=== PATIENT | female | born 1990 | race Two or more races ===

== ENCOUNTER 2018-02-24 17:56 | Observation (INO) | payer OTHER ==
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
[2018-02-24] MEDS ORDERED: LORazepam 2 MG/ML SDV VIAL ONE (18:43)
[2018-02-24 19:16] LABS: BASO % 0.4 % (0-2.0); EOS % 0.7 % (0-4.5); HEMATOCRIT 35.1 % (32.4-45.2); HEMOGLOBIN 11.7 GM/dL (10.7-15.3); LYMPH % 21.9 % (8-40); MCHC 33.4 g/dl (32.0-36.0); MEAN CELL VOLUME 89.8 fl (80-96); MEAN PLT VOLUME 9.1 fl (7.5-11.1); MONO % 4.6 % (3.8-10.2); NEUT % 72.4 % (42.8-82.8); PLATELET COUNT 256 K/MM3 (134-434); RDW 13.9 % (11.6-15.6); WHITE BLOOD COUNT 12.3 K/mm3 (4.0-10.0)
[2018-02-24 19:41] LABS: ALBUMIN 3.7 g/dl (3.4-5.0); ANION GAP 12 (8-16); BILIRUBIN,TOTAL 0.6 mg/dL (0.2-1.0); BLOOD UREA NITROGEN 4 mg/dL (7-18); CALCIUM 9.2 mg/dL (8.5-10.1); CHLORIDE 102 mmol/L (98-107); CO2 22 mmol/L (21-32); CREATININE 0.5 mg/dL (0.55-1.02); GLUCOSE,RANDOM 81 mg/dL (74-106); SGPT/ALT 20 U/L (12-78); SODIUM 136 mmol/L (136-145)
[2018-02-24 19:44] LABS: ALK PHOS 72 U/L (45-117); TOT PROT 7.4 g/dl (6.4-8.2)
[2018-02-24 19:46] LABS: POTASSIUM 3.3 mmol/L (3.5-5.1); SGOT/AST 15 U/L (15-37)
--- NOTE | 2018-02-24 20:06 | PDOC ---
Attending Attestation - HPI HPI: 02/24/18 20:43 The patient is a 27 year old female, with a significant PMH of fainting spells, who presents to the emergency department with five days of lower chest tightness and epigastric abdominal pain. The patient states that earlier today she had approx 3-4 episodes of hematemesis which prompted the ED visit. The patient states she has been taking Motrin every 6 hours for the past 4 days with minimal relief. The patient also endorses constipation, chills and dysuria. The patient denies shortness of breath, palpitations, leg swelling or headache. Denies fever, diarrhea, melenea or hematochezia. Denies frequency, urgency and hematuria. Allergies: NKA - Physicial Exam PE: 02/24/18 21:30 GENERAL: Well developed, well nourished. Awake and alert. No acute distress. HEENT: (+) Dry mucous membranes. Normocephalic, atraumatic. PERRLA, EOMI. No conjunctival pallor. Sclera are non-icteric. Oropharynx is clear. NECK: Supple. Full ROM. No JVD. Carotid pulses 2+ and symmetric, without bruits. No thyromegaly. No lymphadenopathy. CARDIOVASCULAR: Regular rate and rhythm. No murmurs, rubs, or gallops. Distal pulses are 2+ and symmetric. PULMONARY: No evidence of respiratory distress. Lungs clear to auscultation bilaterally. No wheezing, rales or rhonchi. ABDOMINAL: (+) Epigastric and suprapubic tenderness to palpation with guarding. Soft. Non- distended. No organomegaly. Normoactive bowel sounds. MUSCULOSKELETAL Normal range of motion at all joints. No bony deformities or tenderness. EXTREMITIES: No cyanosis. No clubbing. No edema. No calf tenderness. SKIN: Warm and dry. Normal capillary refill. No rashes. No jaundice. NEUROLOGICAL: Alert, awake, appropriate. Cranial nerves 2-12 intact. No deficits to light touch and temperature in face, upper extremities and lower extremities. No motor deficits in the in face, upper extremities and lower extremities. Normoreflexic in the upper and lower extremities. Normal speech. Toes are down- going bilaterally. Gait is normal without ataxia. PSYCHIATRIC: Cooperative. Good eye contact. Appropriate mood and affect. <Siva Gong - Last Filed: 02/25/18 00:52> - Resident Resident Name: SamuelEllis - ED Attending Attestation I have performed the following: I have examined & evaluated the patient, The case was reviewed & discussed with the resident, I agree w/resident's findings & plan, Exceptions are as noted - Medical Decision Making 02/25/18 00:47 Pt will be admitted to hyperemesis gravidarum. <Mukul Mohamud - Last Filed: 02/25/18 02:43> Attestations - Attestations 02/24/18 20:43 Documentation prepared by Siva Gong, acting as nurses medical assistants phlebotomists for Mukul Mohamud DO. <Siva Gong - Last Filed: 02/25/18 00:52>
[2018-02-24 20:08] LABS: URINE APPEARANCE SLCLOUDY; URINE BILIRUBIN NEGATIVE (<2.0 mg/dL); URINE COLOR YELLOW; URINE GLUCOSE (UA) NEGATIVE (NEGATIVE); URINE KETONE 2+ (NEGATIVE); URINE NITRITE NEGATIVE (NEGATIVE); URINE PROTEIN NEGATIVE (NEGATIVE)
[2018-02-24] MEDS ORDERED: SODIUM CHLORIDE 0.9% 1000 ML INFUS.BAG IV ONE (20:12)
[2018-02-24] MEDS ORDERED: POTASSIUM CHLORIDE TABS 20 MEQ TABLET.ER (FP) PO ONE ×2 (20:12→20:20)
[2018-02-24 20:35] LABS: URINE LEUK ESTERASE 3+ (NEGATIVE)
--- NOTE | 2018-02-24 20:43 | PDOC ---
History of Present Illness - General Chief Complaint: Pain Stated Complaint: VOMITING BLOOD Time Seen by Provider: 02/24/18 18:29 History Source: Patient, Family Exam Limitations: No Limitations - History of Present Illness Initial Comments: 02/24/18 20:40 The patient is a 27F with a PMH of "fainting spells" who presents to the ER with complaints of abdominal and chest pain. The patient states that she's had 4 -5 days of constant epigastric pain which is like a "knot pressure" in her abdomen radiating superiorly to her chest. She has also been nauseous for the same amount of time. She states that she has not been able to keep anything down and has been taking 600 ibuprofen every 6 hours for the past 3-4 todays. Today, she began to have bloody vomiting x 3-4 episodes. She admits to constipation, epigastric pain, chills, nausea, and vomiting and dysuria. Past History - Past Medical History Allergies/Adverse Reactions: Allergies Allergy/AdvReac Type Severity Reaction Status Date / Time No Known Allergies Allergy Verified 02/24/18 18:33 Home Medications: Ambulatory Orders NK [No Known Home Medication] 02/24/18 COPD: No Other medical history: Pt denies - Suicide/Smoking/Psychosocial Hx Smoking History: Never smoked Have you smoked in the past 12 months: No Information on smoking cessation initiated: No Hx Alcohol Use: No Drug/Substance Use Hx: No Substance Use Type: None Review of Systems - Review of Systems Able to Perform ROS?: Yes Comments:: 02/24/18 21:21 GENERAL/CONSTITUTIONAL: No fever or chills. No weakness. HEAD, EYES, EARS, NOSE AND THROAT: No change in vision. No ear pain or discharge. No sore throat. CARDIOVASCULAR: Positive for chest pain. No palpitations or lightheadedness. RESPIRATORY: No cough, wheezing, shortness of breath, or hemoptysis. GASTROINTESTINAL: Positive for abdominal pain, nausea, vomiting, and constipation. GENITOURINARY: No dysuria, frequency, hematuria, or change in urination. MUSCULOSKELETAL: No joint or muscle swelling or pain. No neck or back pain. SKIN: No rash or lesions. NEUROLOGIC: No headache, numbness, tingling, weakness, loss of consciousness, or change in strength/sensation. ENDOCRINE: No increased thirst. No abnormal weight change. HEMATOLOGIC/LYMPHATIC: No anemia, easy bleeding, or history of blood clots. ALLERGIC/IMMUNOLOGIC: No hives or skin allergy. Is the patient limited Bel[place]ian proficient: No *Physical Exam - Vital Signs Last Vital Signs Temp Pulse Resp BP Pulse Ox 98.7 F 77 18 147/63 100 02/24/18 18:33 02/24/18 18:33 02/24/18 18:33 02/24/18 18:33 02/24/18 18:33 - Physical Exam Comments: 02/24/18 21:22 GENERAL: Well developed, well nourished. Awake and alert. No acute distress. HEENT: Normocephalic, atraumatic. Hearing grossly normal. Moist mucous membranes. PERRLA, EOMI. No conjunctival pallor. Sclera are non-icteric. NECK: Supple. Full ROM. CARDIOVASCULAR: Regular rate and rhythm. No murmurs, rubs, or gallops. PULMONARY: No evidence of respiratory distress. Lungs clear to auscultation bilaterally. No wheezing, rales or rhonchi. ABDOMINAL: Soft. TTP over epigastrium and suprapubic abdomen with guarding. Non- distended. GENITOURINARY: L CVA tenderness. MUSCULOSKELETAL: Normal range of motion at all joints. No bony deformities or tenderness. EXTREMITIES: No cyanosis. No clubbing. No edema. No calf tenderness or swelling. SKIN: Warm and dry. Normal capillary refill. No rashes. No jaundice. NEUROLOGICAL: Alert, awake, appropriate. Cranial nerves 2-12 grossly intact. Normal speech. PSYCHIATRIC: Cooperative. Good eye contact. Appropriate mood and affect. ED Treatment Course - LABORATORY CBC & Chemistry Diagram: 02/24/18 19:07 02/24/18 19:07 - ADDITIONAL ORDERS Additional order review: Laboratory Results 02/24/18 02/24/18 02/24/18 19:07 19:07 19:05 Sodium 136 Potassium 3.3 L Chloride 102 Carbon Dioxide 22 Anion Gap 12 BUN 4 L Creatinine 0.5 L Creat Clearance w eGFR > 60 Random Glucose 81 Calcium 9.2 Total Bilirubin 0.6 AST 15 ALT 20 Alkaline Phosphatase 72 Creatine Kinase 108 Troponin I < 0.02 Total Protein 7.4 Albumin 3.7 Serum , Qual Positive Urine Color Yellow Urine Appearance Slcloudy Urine pH 6.0 Ur Specific [place] 1.020 Urine Protein Negative Urine Glucose (UA) Negative Urine Ketones 2+ H Urine Blood Negative Urine Nitrite Negative Urine Bilirubin Negative Urine Urobilinogen 2.0 H Ur Leukocyte Esterase 3+ H 02/24/18 19:07 RBC 3.90 MCV 89.8 MCHC 33.4 RDW 13.9 MPV 9.1 Neutrophils % 72.4 Lymphocytes % 21.9 Monocytes % 4.6 Eosinophils % 0.7 Basophils % 0.4 - RADIOLOGY Radiology Studies Ordered: Category Date Time Status ABDOMEN US -LIMITED [US] Stat Ultrasound 02/24/18 19:59 Ordered TRANSVAGINAL US PREG [US] Stat Ultrasound 02/24/18 19:58 Ordered - Medications Given in the ED: ED Medications Discontinued Medications Generic Name Dose Route Start Last Admin Trade Name Deepak PRN Reason Stop Dose Admin Lorazepam 2 mg 02/24/18 18:52 02/24/18 18:50 Ativan Injection - IM 02/24/18 18:53 2 mg ONCE ONE Administration Potassium Chloride 40 meq 02/24/18 20:12 02/24/18 20:27 K-Dur - PO 02/24/18 20:13 40 meq ONCE ONE Administration Sodium Chloride 1,000 ml 02/24/18 20:12 02/24/18 20:27 Normal Saline - IV 02/24/18 20:13 1,000 ml ONCE ONE Administration Medical Decision Making - Medical Decision Making 02/24/18 21:23 The patient is a 27F with a PMH of "fainting spells" who presents to the ER with worsening nausea and vomiting, which has been bloody per the family. The patient had a syncopal episode in the waiting room and was immediately brought to a bed, placed on the monitor with stable vitals noted. She was noted to have shaking activity, although no hx of seizure, and was given 2mg ativan IM. Labs indicate . Pending U/S and quant. Giving zofran for nausea. 02/24/18 23:24 TV U/S shows ~14 week , IUP. RUQ is negative. Labs WNL. Pt states that she has burning b/l UQ pain. Will give maalox and pepcid and reassess. She is desiring "a camera to look there right now!". 02/25/18 00:49 Pt is not tolerating PO. Will admit for hyperemesis gravidarum. Paging [employer] so they are aware. I have endorsed the pt to Dr. Hernandez for admission. *DC/Admit/Observation/Transfer Diagnosis at time of Disposition: Abdominal pain Qualifiers: Abdominal location: epigastric Qualified Code(s): R10.13 - Epigastric pain Vomiting blood Qualifiers: Nausea presence: with nausea Qualified Code(s): K92.0 - Hematemesis - Discharge Dispostion Condition at time of disposition: Guarded Decision to Admit order: Yes - Referrals - Patient Instructions - Post Discharge Activity
[2018-02-24] MEDS ORDERED: ONDANSETRON 4 MG/2 ML VIAL IVPUSH ONE (20:45)
[2018-02-24] MEDS ORDERED: ONDANSETRON 4 MG/2 ML VIAL ONE (20:51)
[2018-02-24 21:26] LABS: EPI CELLS MODERATE /HPF (FEW); URINE HYALINE CAST 5 /lpf; URINE MUCUS RARE
[2018-02-24 22:26] LABS: HCG,QUALITATIVE URINE POSITIVE
[2018-02-24] MEDS ORDERED: FAMOTIDINE 20 MG/50 ML IVPB 20 MG/50 ML MG IVPB ONE ×2 (22:59→23:45)
[2018-02-24] MEDS ORDERED: MAG HYDROX/AL HYDROX/SIMETH 30 ML UNIT-DOSE CUP ONE (22:59)
[2018-02-24] MEDS ORDERED: CEFTRIAXONE 1 GM/50 ML BAG ONE (23:04)
[2018-02-24] MEDS ORDERED: CEFTRIAXONE 1,000 MG in DEXTROSE 5%-WATER - 50 ML IVPB ONE (23:19)
[2018-02-24] MEDS ORDERED: MAG HYDROX/AL HYDROX/SIMETH -MYLANTA- ORAL SUSPENSION PO ONE (23:19)
[2018-02-25] MEDS ORDERED: SODIUM CHLORIDE 1,000 ML IV STA ×2 (00:46)
[2018-02-25] MEDS ORDERED: SODIUM CHLORIDE 1,000 ML IV SCH (04:00)
[2018-02-25 04:11] VITALS: BMI 27.4
[2018-02-25] MEDS ORDERED: PANTOPRAZOLE SODIUM 80 MG in SODIUM CHLORIDE 100 ML IVPB SCH (04:15)
[2018-02-25] MEDS: KCL 10 MEQ IVPB 10 MEQ/100 ML INFUS.BAG IVPB SCH ×2 (05:11→12:07)
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
[2018-02-25 06:55] LABS: BASO % 0.1 % (0-2.0); EOS % 0.2 % (0-4.5); HEMATOCRIT 31.8 % (32.4-45.2); HEMOGLOBIN 11.1 GM/dL (10.7-15.3); LYMPH % 21.5 % (8-40); MCH 31.3 pg (25.7-33.7); MCHC 34.8 g/dl (32.0-36.0); MEAN PLT VOLUME 8.8 fl (7.5-11.1); MONO % 5.7 % (3.8-10.2); NEUT % 72.5 % (42.8-82.8); PLATELET COUNT 185 K/MM3 (134-434); RBC 3.53 M/mm3 (3.60-5.2); RDW 13.8 % (11.6-15.6); WHITE BLOOD COUNT 10.3 K/mm3 (4.0-10.0)
[2018-02-25 07:52] LABS: ALBUMIN 3.1 g/dl (3.4-5.0); ALK PHOS 59 U/L (45-117); BILIRUBIN,TOTAL 0.5 mg/dL (0.2-1.0); BLOOD UREA NITROGEN 3 mg/dL (7-18); CALCIUM 7.7 mg/dL (8.5-10.1); CHLORIDE 107 mmol/L (98-107); CREATININE 0.4 mg/dL (0.55-1.02); GLUCOSE,RANDOM 63 mg/dL (74-106); MAGNESIUM 1.7 mg/dL (1.8-2.4); PHOSPHOROUS 2.6 mg/dL (2.5-4.9); POTASSIUM 3.4 mmol/L (3.5-5.1); SGOT/AST 11 U/L (15-37); SGPT/ALT 16 U/L (12-78); SODIUM 138 mmol/L (136-145)
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
[2018-02-25 08:33] LABS: ANION GAP 11 (8-16); CO2 20 mmol/L (21-32)
[2018-02-25] MEDS ORDERED: MAGNESIUM SULF 50% (8.12 MEQ/2 ML-1 GM VIAL) IVPB ONE (11:31)
[2018-02-25] MEDS ORDERED: PANTOPRAZOLE SODIUM 40 MG VIAL IVPUSH SCH (11:45)
[2018-02-25] MEDS ORDERED: MAGNESIUM SULFATE IN WATER 2 GM/50 ML IVPB IVPB ONE (12:00)
--- NOTE | 2018-02-25 12:06 | EKG ---
Test Reason : Blood Pressure : / mmHG Vent. Rate : 067 BPM Atrial Rate : 067 BPM P-R Int : 150 ms QRS Dur : 090 ms QT Int : 406 ms P-R-T Axes : 050 075 033 degrees QTc Int : 429 ms NORMAL SINUS RHYTHM NORMAL ECG NO PREVIOUS ECGS AVAILABLE Confirmed by ERMA SHORT MD ([id number]) on 02/25/2018 12:05:56 PM Referred By: Confirmed By:ERMA SHORT MD
[2018-02-25] MEDS: ONDANSETRON 4 MG/2 ML VIAL IVPUSH PRN ×2 (12:07→17:19)
[2018-02-25] MEDS: DEXTROSE 5%-NORMAL SALINE 1,000 ML IV SCH ×2 (12:07→20:54)
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
[2018-02-25] MEDS ORDERED: CALCIUM GLUCONATE 10% - 1,000 MG/10 ML VIAL IVPB ONE (14:00)
--- NOTE | 2018-02-25 15:02 | ECHO ---
Name: DIMITRIOS CHRISTIAN Exam:Adult Echocardiogram Study Date: 02/25/2018 01:42 PM Age: 27 yrs Reason For Study: Chest pain Height: 65 in Weight: 165 lb BSA: 1.8 m2 MMode/2D Measurements & Calculations IVSd: 0.66 cm Ao root diam: 2.7 cm LVIDd: 5.2 cm LA dimension: 3.5 cm LVIDs: 3.4 cm LVPWd: 0.56 cm EDV(Teich): 128.1 ml RV S Alejandro: 20.1 cm/sec ESV(Teich): 48.6 ml Doppler Measurements & Calculations MV E max alejandro: 81.9 cm/sec MR max alejandro: 461.5 cm/sec MV A max alejandro: 60.2 cm/sec MR max P.2 mmHg MV E/A: 1.4 MV dec time: 0.31 sec TR max alejandro: 227.0 cm/sec Med Peak E' Alejandro: 12.0 cm/sec TR max P.6 mmHg Med E/e': 6.9 Lat Peak E' Alejandro: 19.1 cm/sec Lat E/e': 4.3 Left Ventricle Left ventricular systolic function is normal. Right Ventricle The right ventricle is grossly normal size. The right ventricular systolic function is grossly normal . Atria Normal left and right atrial size and function. Mitral Valve The mitral valve is normal in structure and function. There is no mitral valve stenosis. There is mil d mitral regurgitation. Tricuspid Valve The tricuspid valve is not well visualized, but is grossly normal. There is mild tricuspid regurgitat ion. Aortic Valve The aortic valve opens well. No hemodynamically significant valvular aortic stenosis. No aortic regur gitation is present. Pulmonic Valve The pulmonic valve is not well seen, but is grossly normal. There is no pulmonic valvular stenosis. T here is no pulmonic valvular regurgitation. Great Vessels The aortic root is normal size. Pericardium/Pleura There is no pericardial effusion. Interpretation Summary Left ventricular systolic function is normal. There is mild mitral regurgitation. There is mild tricuspid regurgitation. There is no pericardial effusion. MD Rosalino Serna 02/25/2018 03:02 PM
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
[2018-02-25] MEDS: POTASSIUM CHLORIDE 10 MEQ in SODIUM CHLORIDE 100 ML IVPB SCH ×2 (15:58→17:13)
[2018-02-25] MEDS ORDERED: PYRIDOXINE HCL (B-6) 100 MG TABLET PO ONE (17:16)
[2018-02-25] MEDS: MAG HYDROX/AL HYDROX/SIMETH 30 ML UNIT-DOSE CUP PO PRN (17:17)
[2018-02-25] MEDS: SUCRALFATE 1 GM/10 ML UNIT DOSE CUPS PO SCH ×2 (17:17→21:18)
--- NOTE | 2018-02-25 18:12 | PN ---
Physical Exam: SUBJECTIVE: Patient seen and examined this morning at bedside in the presence of her aunt. Continues to vomit blood. Continues to having retching throughout examination. Denies fevers, chills, chest pain, SOB. OBJECTIVE: Vital Signs Period Temp Pulse Resp BP Sys/Hopper Pulse Ox Last 24 Hr 98.1 F-98.7 F 67-77 18-20 107-147/63-85 99-100 GENERAL: The patient is awake, alert, and fully oriented, in no acute distress. THROAT: Oropharynx clear without erythema or exudates, moist mucous membranes. LUNGS: Breath sounds equal, clear to auscultation bilaterally, no wheezes, no crackles HEART: Regular rate and rhythm, S1, S2 without murmur, rub or gallop. ABDOMEN: Soft, nondistended, normoactive bowel sounds, no guarding, Tender to palpation in the LUQ and Midepigastrum that radiates up the sternum EXTREMITIES: no edema. PSYCH: Anxious Laboratory Results - last 24 hr 02/24/18 02/24/18 02/24/18 18:49 19:05 19:07 WBC 12.3 H RBC 3.90 Hgb 11.7 Hct 35.1 MCV 89.8 MCH 30.0 MCHC 33.4 RDW 13.9 Plt Count 256 MPV 9.1 Absolute Neuts (auto) 8.9 Neutrophils % 72.4 Lymphocytes % 21.9 Monocytes % 4.6 Eosinophils % 0.7 Basophils % 0.4 Nucleated RBC % 0 Sodium Potassium Chloride Carbon Dioxide Anion Gap BUN Creatinine Creat Clearance w eGFR POC Glucometer [id number] Random Glucose Lactic Acid Calcium Phosphorus Magnesium Total Bilirubin AST ALT Alkaline Phosphatase Creatine Kinase Troponin I Total Protein Albumin Lipase Beta HCG, Quant Serum , Qual Positive Urine Color Urine Appearance Urine pH Ur Specific [place] Urine Protein Urine Glucose (UA) Urine Ketones Urine Blood Urine Nitrite Urine Bilirubin Urine Urobilinogen Ur Leukocyte Esterase Urine WBC (Auto) Urine RBC (Auto) Ur Epithelial Cells Hyaline Casts Urine Mucus Urine HCG, Qual Blood Type Antibody Screen 02/24/18 02/24/18 02/24/18 19:07 19:07 19:07 WBC RBC Hgb Hct MCV MCH MCHC RDW Plt Count MPV Absolute Neuts (auto) Neutrophils % Lymphocytes % Monocytes % Eosinophils % Basophils % Nucleated RBC % Sodium 136 Potassium 3.3 L Chloride 102 Carbon Dioxide 22 Anion Gap 12 BUN 4 L Creatinine 0.5 L Creat Clearance w eGFR > 60 POC Glucometer Random Glucose 81 Lactic Acid Calcium 9.2 Phosphorus Magnesium Total Bilirubin 0.6 AST 15 ALT 20 Alkaline Phosphatase 72 Creatine Kinase 108 Troponin I < 0.02 Total Protein 7.4 Albumin 3.7 Lipase Beta HCG, Quant Serum , Qual Urine Color Yellow Urine Appearance Slcloudy Urine pH 6.0 Ur Specific [place] 1.020 Urine Protein Negative Urine Glucose (UA) Negative Urine Ketones 2+ H Urine Blood Negative Urine Nitrite Negative Urine Bilirubin Negative Urine Urobilinogen 2.0 H Ur Leukocyte Esterase 3+ H Urine WBC (Auto) 7 Urine RBC (Auto) 2 Ur Epithelial Cells Moderate Hyaline Casts 5 Urine Mucus Rare Urine HCG, Qual Positive Blood Type O POSITIVE Antibody Screen Negative 02/24/18 02/24/18 02/25/18 19:07 20:14 06:00 WBC 10.3 H RBC 3.53 L Hgb 11.1 Hct 31.8 L MCV 90.0 MCH 31.3 MCHC 34.8 RDW 13.8 Plt Count 185 D MPV 8.8 Absolute Neuts (auto) 7.5 Neutrophils % 72.5 Lymphocytes % 21.5 Monocytes % 5.7 Eosinophils % 0.2 Basophils % 0.1 Nucleated RBC % 0 Sodium Potassium Chloride Carbon Dioxide Anion Gap BUN Creatinine Creat Clearance w eGFR POC Glucometer Random Glucose Lactic Acid 0.9 Calcium Phosphorus Magnesium Total Bilirubin AST ALT Alkaline Phosphatase Creatine Kinase Troponin I Total Protein Albumin Lipase 80 Beta HCG, Quant 95933.3 Serum , Qual Urine Color Urine Appearance Urine pH Ur Specific [place] Urine Protein Urine Glucose (UA) Urine Ketones Urine Blood Urine Nitrite Urine Bilirubin Urine Urobilinogen Ur Leukocyte Esterase Urine WBC (Auto) Urine RBC (Auto) Ur Epithelial Cells Hyaline Casts Urine Mucus Urine HCG, Qual Blood Type Antibody Screen 02/25/18 02/25/18 06:00 08:50 WBC RBC Hgb Hct MCV MCH MCHC RDW Plt Count MPV Absolute Neuts (auto) Neutrophils % Lymphocytes % Monocytes % Eosinophils % Basophils % Nucleated RBC % Sodium 138 Potassium 3.4 L Chloride 107 Carbon Dioxide 20 L Anion Gap 11 BUN 3 L Creatinine 0.4 L Creat Clearance w eGFR > 60 POC Glucometer Random Glucose 63 L Lactic Acid Calcium 7.7 L Phosphorus 2.6 Magnesium 1.7 L Total Bilirubin 0.5 AST 11 L ALT 16 Alkaline Phosphatase 59 D Creatine Kinase Troponin I Total Protein 6.0 L Albumin 3.1 L Lipase Beta HCG, Quant Serum , Qual Urine Color Urine Appearance Urine pH Ur Specific [place] Urine Protein Urine Glucose (UA) Urine Ketones Urine Blood Urine Nitrite Urine Bilirubin Urine Urobilinogen Ur Leukocyte Esterase Urine WBC (Auto) Urine RBC (Auto) Ur Epithelial Cells Hyaline Casts Urine Mucus Urine HCG, Qual Blood Type O POSITIVE Antibody Screen Active Medications Al Hydroxide/Mg Hydroxide (Mylanta Oral Suspension -) 30 ml PO Q6H PRN PRN Reason: DYSPEPSIA Last Admin: 02/25/18 17:17 Dose: 30 ml Famotidine/Sodium Chloride (Pepcid 20 Mg Premixed Ivpb -) 20 mg in 50 mls @ 100 mls/hr IVPB BID LEAH Last Admin: 02/25/18 21:18 Dose: 100 mls/hr Dextrose/Sodium Chloride (D5-Ns -) 1,000 mls @ 125 mls/hr IV ASDIR LEAH Ondansetron HCl (Zofran Injection) 4 mg IVPUSH Q6H PRN PRN Reason: NAUSEA Last Admin: 02/26/18 07:47 Dose: 4 mg Pyridoxine HCl (Vitamin B6 -) 50 mg PO TID LEAH Last Admin: 02/25/18 22:41 Dose: Not Given Sucralfate (Carafate Oral Suspension -) 1 gm PO QID LE[facility] Last Admin: 02/25/18 21:18 Dose: Not Given ASSESSMENT/PLAN: 27 y/o F who presents to ED with complaint of hematemesis for several weeks. Labs remarkable for leukocytosis and mild hypokalemia. TVUS in ED remarkable for 14th week . 1. Vomiting - Pt reports several weeks of hematemesis - OB (Dr. Mahmood) consulted, appreciate rec's - TVUS noted - Hgb WNL - Pending Abdominal Ultrasound - GI consulted, appreciate rec's, started H2 blockers - Zofran - Protonix BID - Mylanta - Will obtain records from other 2 ERs patient visited - ECHO 2. Multiple electrolyte abnormalities; HypoKalemia, Hypocalcemia, Hypophosphatemia, Hypomagnesemia - Potassium 3.4, Calcium 7.7, Phosphorus 2.6, Magnesium 1.7 - Kdur in ED, KCl - Continue to monitor, replete as needed 3. FEN - PO Intake - Replete Potassium, calcium, mag, phos - Soft diet 4. PPx - SCDs Visit type - Emergency Visit Emergency Visit: Yes ED Registration Date: 02/25/18 Care time: The patient presented to the Emergency Department on the above date and was hospitalized for further evaluation of their emergent condition. - New Patient This patient is new to me today: Yes Date on this admission: 02/26/18 - Critical Care Critical Care patient: No
[2018-02-25] MEDS ORDERED: ACETAMINOPHEN 325 MG TABLET (FP) PO ONE (20:22)
[2018-02-25] MEDS ORDERED: diphenhydrAMINE HCL 25 MG CAPSULE (FP) PO ONE (20:22)
[2018-02-25] MEDS ORDERED: PANTOPRAZOLE SODIUM 40 MG VIAL IVPUSH ONE ×2 (21:13→22:14)
[2018-02-25] MEDS: PYRIDOXINE HCL (B-6) 50 MG TABLET (FP) PO SCH ×2 (21:16→22:41)
[2018-02-25] MEDS: FAMOTIDINE 20 MG/50 ML IVPB 20 MG/50 ML MG IVPB SCH (21:18)
--- NOTE | 2018-02-25 22:12 | RAPID ---
Physical Examination Vital Signs: Rapid response called approximately 9:55pm. Patient was observed flailing with abnormal movements. Was unresponsive when physicians arrived. Immediately alerted to sternal rub. In severe distress. Complaining of chest pain, inability to breathe, and "something in my chest." Complains of seeing "lights everywhere." Given non-rebreather but did not tolerate. Became unresponsive repeatedly during evaluation but immediately re-alerted to voice. Coughed up moderate white sputum with scant blood. Bedside seated right arm BP 170/80. HR wnl. Stat EKG showed NSR. Troponins, CBC, CMP, CPK, ABG, lactate ordered stat. Protonix 40mg IV and Ativan 0.5 ordered stat. Repeat right arm BP 140/84. Left arm BP 132/80. Abd US ordered.Will follow Vital Signs Temperature 98.6 F 02/25/18 21:02 Pulse Rate 66 02/25/18 21:02 Respiratory Rate 20 02/25/18 21:02 Blood Pressure 135/75 02/25/18 21:02 O2 Sat by Pulse Oximetry (%) 100 02/25/18 03:30 Cardiovascular: Yes: WNL, Regular Rate and Rhythm Respiratory: Yes: WNL, Regular, CTA Bilaterally Gastrointestinal: Yes: WNL, Normal Bowel Sounds ...Motor Strength: WNL Labs: CBC, BMP 02/25/18 06:00 02/25/18 06:00
[2018-02-25] MEDS ORDERED: LORazepam 2 MG/ML SDV VIAL IVPUSH ONE ×2 (22:16→22:17)
[2018-02-25 22:55] LABS: BASO % 0.1 % (0-2.0); EOS % 0.2 % (0-4.5); HEMATOCRIT 33.5 % (32.4-45.2); HEMOGLOBIN 11.4 GM/dL (10.7-15.3); LYMPH % 19.1 % (8-40); MCH 30.6 pg (25.7-33.7); MEAN PLT VOLUME 8.4 fl (7.5-11.1); MONO % 4.6 % (3.8-10.2); PLATELET COUNT 216 K/MM3 (134-434); RBC 3.72 M/mm3 (3.60-5.2); WHITE BLOOD COUNT 10.8 K/mm3 (4.0-10.0)
[2018-02-25 23:19] LABS: ALBUMIN 3.2 g/dl (3.4-5.0); ANION GAP 9 (8-16); BLOOD UREA NITROGEN 4 mg/dL (7-18); CALCIUM 8.1 mg/dL (8.5-10.1); CHLORIDE 103 mmol/L (98-107); CO2 22 mmol/L (21-32); CREATININE 0.6 mg/dL (0.55-1.02); GLUCOSE,RANDOM 81 mg/dL (74-106); POTASSIUM 3.2 mmol/L (3.5-5.1); SGOT/AST 12 U/L (15-37); SGPT/ALT 18 U/L (12-78); SODIUM 134 mmol/L (136-145)
[2018-02-25 23:22] LABS: ALK PHOS 65 U/L (45-117); BILIRUBIN,TOTAL 0.5 mg/dL (0.2-1.0); TOT PROT 6.4 g/dl (6.4-8.2)
[2018-02-26 00:15] LABS: ARTERIAL BLD GAS O2 SATURATION 97.9 % (90-98.9); ARTERIAL BLOOD GAS BASE EXCESS -5.1 meq/l (-2-2); ARTERIAL BLOOD GAS PCO2 30.8 mmHg (35-45); ARTERIAL BLOOD GAS pH 7.39 (7.35-7.45)
[2018-02-26 00:16] LABS: ALLENS TEST POSITIVE
[2018-02-26] MEDS: ONDANSETRON 4 MG/2 ML VIAL IVPUSH PRN ×4 (01:58→19:51)
[2018-02-26] MEDS ORDERED: DEXTROSE 5%-NORMAL SALINE 1,000 ML IV SCH (08:00)
[2018-02-26 08:11] LABS: BASO % 0.1 % (0-2.0); EOS % 0.7 % (0-4.5); HEMATOCRIT 32.7 % (32.4-45.2); HEMOGLOBIN 11.3 GM/dL (10.7-15.3); LYMPH % 21.2 % (8-40); MCH 30.8 pg (25.7-33.7); MCHC 34.5 g/dl (32.0-36.0); MEAN CELL VOLUME 89.4 fl (80-96); MEAN PLT VOLUME 8.5 fl (7.5-11.1); MONO % 6.2 % (3.8-10.2); NEUT % 71.8 % (42.8-82.8); PLATELET COUNT 185 K/MM3 (134-434); RBC 3.66 M/mm3 (3.60-5.2); RDW 13.8 % (11.6-15.6); WHITE BLOOD COUNT 8.8 K/mm3 (4.0-10.0)
[2018-02-26 09:33] LABS: MAGNESIUM 1.9 mg/dL (1.8-2.4); PHOSPHOROUS 2.5 mg/dL (2.5-4.9)
[2018-02-26 10:17] LABS: ALBUMIN 3.2 g/dl (3.5-5.0); ANION GAP 9 (8-16); BLOOD UREA NITROGEN 3 mg/dl (7-18); CALCIUM 7.9 mg/dl (8.4-10.2); CHLORIDE 106 mmol/L (98-107); CO2 23 mmol/L (22-28); CREATININE 0.4 mg/dl (0.6-1.3); GLUCOSE,RANDOM 72 mg/dl (74-106); POTASSIUM 3.3 mmol/L (3.5-5.1); SODIUM 138 mmol/L (136-145); TOT PROT 6.3 g/dl (6.4-8.3)
[2018-02-26] MEDS: SUCRALFATE 1 GM/10 ML UNIT DOSE CUPS PO SCH ×4 (10:17→22:23)
[2018-02-26 10:18] LABS: ALK PHOS 64 U/L (32-92); BILIRUBIN,DIRECT 0.2 mg/dL (0.0-0.3); BILIRUBIN,TOTAL 0.6 mg/dl (0.2-1.0); SGOT/AST 8 U/L (10-42); SGPT/ALT 16 U/L (10-40)
[2018-02-26] MEDS ORDERED: KCL 10 MEQ IVPB 10 MEQ/100 ML INFUS.BAG IVPB SCH ×2 (10:30→15:30)
[2018-02-26] MEDS ORDERED: POTASSIUM CHLORIDE ORAL LIQUID 20 MEQ/15 ML PO ONE (11:20)
[2018-02-26] MEDS: FAMOTIDINE 20 MG/50 ML IVPB 20 MG/50 ML MG IVPB SCH (11:21)
--- NOTE | 2018-02-26 11:25 | EKG ---
Test Reason : Blood Pressure : / mmHG Vent. Rate : 072 BPM Atrial Rate : 072 BPM P-R Int : 144 ms QRS Dur : 084 ms QT Int : 436 ms P-R-T Axes : 073 072 052 degrees QTc Int : 477 ms NORMAL SINUS RHYTHM NORMAL ECG WHEN COMPARED WITH ECG OF 24-FEB-2018 19:53, QT HAS LENGTHENED Confirmed by HAN RODRIGUEZ, ERMA ([id number]) on 02/26/2018 11:24:57 AM Referred By: Confirmed By:ERMA SHORT MD
--- NOTE | 2018-02-26 11:27 | PN ---
Progress Note (short form) - Note Progress Note: patient was advised to have NT sono, sequential one genetic screen with MFM Dr Leo, patient taken to her office , declined to move from [facility] and declined exam, understand importance of first trimester screening .
[2018-02-26] MEDS: PYRIDOXINE HCL (B-6) 50 MG TABLET (FP) PO SCH ×4 (11:31→22:23)
[2018-02-26] MEDS: DEXTROSE 5%-NORMAL SALINE 1,000 ML IV SCH (11:32)
--- NOTE | 2018-02-26 11:38 | PN ---
Progress Note, Physician History of Present Illness: Chart reviewed. Events noted - Current Medication List Current Medications: Active Medications Al Hydroxide/Mg Hydroxide (Mylanta Oral Suspension -) 30 ml PO Q6H PRN PRN Reason: DYSPEPSIA Last Admin: 02/25/18 17:17 Dose: 30 ml Dextrose/Sodium Chloride (D5-Ns -) 1,000 mls @ 125 mls/hr IV ASDIR [facility] Last Admin: 02/26/18 11:32 Dose: Not Given Ondansetron HCl (Zofran Injection) 4 mg IVPUSH Q6H PRN PRN Reason: NAUSEA Last Admin: 02/26/18 07:47 Dose: 4 mg Potassium Chloride (Potassium Chloride Oral Liquid) 40 meq PO ONCE ONE Stop: 02/26/18 11:21 Pyridoxine HCl (Vitamin B6 -) 50 mg PO TID LEAH Last Admin: 02/26/18 11:31 Dose: Not Given Ranitidine HCl (Zantac Oral Solution -) 150 mg PO BID LEAH Sucralfate (Carafate Oral Suspension -) 1 gm PO QID [facility] Last Admin: 02/26/18 10:17 Dose: 1 gm - Objective Vital Signs: Vital Signs Temperature 98.2 F 02/26/18 06:00 Pulse Rate 63 02/26/18 06:00 Respiratory Rate 18 02/26/18 06:00 Blood Pressure 129/80 02/26/18 06:00 O2 Sat by Pulse Oximetry (%) 99 02/25/18 19:00 Labs: CBC, BMP 02/26/18 06:50 02/26/18 06:50 Problem List - Problems (1) Jimmy lesion, acute Code(s): K25.3 - ACUTE GASTRIC ULCER WITHOUT HEMORRHAGE OR PERFORATION Assessment/Plan Restart management as [id number] below Avoid NSAIDs H2RB po QHS Protonix 40 mg po QAM liquid carafate 1 gm po QID Keke tea B6 po tid Soft diet Observe for 24-48 hrs Monitor, correct electrolytes as needed CBC, CMP, D. bili in AM
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
[2018-02-26] MEDS: POLYETHYLENE GLYCOL 3350 119 GM BTL PO SCH ×2 (12:25→22:23)
[2018-02-26] MEDS: RANITIDINE HCL 150 MG/10 ML UNIT-DOSE PO SCH ×2 (12:25→22:23)
--- NOTE | 2018-02-26 13:44 | PN ---
Physical Exam: SUBJECTIVE: Patient seen and examined. Rapid response called on Pt yesterday for flailing hand movements, found to have stable vitals and labs. Still c/o about feeling of a bug crawling from her abdomen to her chest. C/o about nausea but not seen to be actively vomiting. OBJECTIVE: Vital Signs Period Temp Pulse Resp BP Sys/Hopper Pulse Ox Last 24 Hr 98.1 F-98.9 F 63-71 18-20 124-135/67-80 99 GENERAL: The patient is awake, alert, and fully oriented, in any obvious acute distress. NECK: Trachea midline, full range of motion, supple. LUNGS: Breath sounds equal, clear to auscultation bilaterally HEART: Regular rate and rhythm, S1, S2 ABDOMEN: No clear areas of tenderness on abdominal palpation, Suprapubic fullness, Soft, nontender, nondistended, normoactive bowel sounds. Pt closing eyes when you palpate her EXTREMITIES: 2+ pulses, warm, well-perfused, no edema. NEUROLOGICAL: talkative, AAOx3, able to move all limbs, no lateralizing signs Laboratory Results - last 24 hr 02/25/18 02/25/18 02/25/18 22:30 22:30 22:30 WBC 10.8 H RBC 3.72 Hgb 11.4 Hct 33.5 MCV 90.0 MCH 30.6 MCHC 34.0 RDW 14.0 Plt Count 216 MPV 8.4 Absolute Neuts (auto) 8.2 Neutrophils % 76.0 Lymphocytes % 19.1 Monocytes % 4.6 Eosinophils % 0.2 Basophils % 0.1 Nucleated RBC % 0 Puncture Site ABG pH ABG pCO2 at Pt Temp ABG pO2 at Pt Temp ABG HCO3 ABG O2 Sat (Measured) ABG O2 Content ABG Base Excess Cesar Test O2 Delivery Device Oxygen Flow Rate PEEP Sodium 134 L Potassium 3.2 L Chloride 103 Carbon Dioxide 22 Anion Gap 9 BUN 4 L Creatinine 0.6 Creat Clearance w eGFR > 60 POC Glucometer Random Glucose 81 Calcium 8.1 L Phosphorus Magnesium Total Bilirubin 0.5 Direct Bilirubin AST 12 L ALT 18 Alkaline Phosphatase 65 Creatine Kinase 84 85 Troponin I < 0.02 Total Protein 6.4 Albumin 3.2 L 02/26/18 02/26/18 02/26/18 00:10 06:50 06:50 WBC 8.8 RBC 3.66 Hgb 11.3 Hct 32.7 MCV 89.4 MCH 30.8 MCHC 34.5 RDW 13.8 Plt Count 185 MPV 8.5 Absolute Neuts (auto) 6.3 Neutrophils % 71.8 Lymphocytes % 21.2 Monocytes % 6.2 Eosinophils % 0.7 D Basophils % 0.1 Nucleated RBC % 0 Puncture Site Left radial ABG pH 7.39 ABG pCO2 at Pt Temp 30.8 L ABG pO2 at Pt Temp 104.0 H ABG HCO3 18.4 L ABG O2 Sat (Measured) 97.9 ABG O2 Content 15.6 ABG Base Excess -5.1 L Cesar Test Positive O2 Delivery Device Room air Oxygen Flow Rate No PEEP 0.0 Sodium 138 Potassium 3.3 L Chloride 106 Carbon Dioxide 23 Anion Gap 9 BUN 3 L Creatinine 0.4 L Creat Clearance w eGFR > 60 POC Glucometer Random Glucose 72 L Calcium 7.9 L Phosphorus 2.5 Magnesium 1.9 Total Bilirubin 0.6 Direct Bilirubin 0.2 AST 8 L ALT 16 Alkaline Phosphatase 64 Creatine Kinase Troponin I Total Protein 6.3 L Albumin 3.2 L 02/26/18 12:31 WBC RBC Hgb Hct MCV MCH MCHC RDW Plt Count MPV Absolute Neuts (auto) Neutrophils % Lymphocytes % Monocytes % Eosinophils % Basophils % Nucleated RBC % Puncture Site ABG pH ABG pCO2 at Pt Temp ABG pO2 at Pt Temp ABG HCO3 ABG O2 Sat (Measured) ABG O2 Content ABG Base Excess Cesar Test O2 Delivery Device Oxygen Flow Rate PEEP Sodium Potassium Chloride Carbon Dioxide Anion Gap BUN Creatinine Creat Clearance w eGFR POC Glucometer 83 Random Glucose Calcium Phosphorus Magnesium Total Bilirubin Direct Bilirubin AST ALT Alkaline Phosphatase Creatine Kinase Troponin I Total Protein Albumin Active Medications Generic Name Dose Route Start Last Admin Trade Name Freq PRN Reason Stop Dose Admin Al Hydroxide/Mg Hydroxide 30 ml 02/25/18 13:46 02/25/18 17:17 Mylanta Oral Suspension - PO 30 ml Q6H PRN Administration DYSPEPSIA Ondansetron HCl 4 mg 02/25/18 04:03 02/26/18 12:47 Zofran Injection IVPUSH 4 mg Q6H PRN Administration NAUSEA Polyethylene Glycol 17 gm 02/26/18 11:45 02/26/18 12:25 Miralax (For Daily Use) - PO 17 gm BID LEAH Administration Pyridoxine HCl 50 mg 02/25/18 16:00 02/26/18 11:31 Vitamin B6 - PO Not Given TID [facility] Ranitidine HCl 150 mg 02/26/18 11:30 02/26/18 12:25 Zantac Oral Solution - PO 150 mg BID LEAH Administration Sucralfate 1 gm 02/25/18 18:00 02/26/18 10:17 Carafate Oral Suspension - PO 1 gm QID LEAH Administration Current Medications Al Hydroxide/Mg Hydroxide (Mylanta Oral Suspension -) 30 ml PO Q6H PRN PRN Reason: DYSPEPSIA Last Admin: 02/25/18 17:17 Dose: 30 ml Ondansetron HCl (Zofran Injection) 4 mg IVPUSH Q6H PRN PRN Reason: NAUSEA Last Admin: 02/26/18 12:47 Dose: 4 mg Polyethylene Glycol (Miralax (For Daily Use) -) 17 gm PO BID [facility] Last Admin: 02/26/18 12:25 Dose: 17 gm Pyridoxine HCl (Vitamin B6 -) 50 mg PO TID [facility] Last Admin: 02/26/18 11:31 Dose: Not Given Ranitidine HCl (Zantac Oral Solution -) 150 mg PO BID [facility] Last Admin: 02/26/18 12:25 Dose: 150 mg Sucralfate (Carafate Oral Suspension -) 1 gm PO QID [facility] Last Admin: 02/26/18 10:17 Dose: 1 gm ASSESSMENT/PLAN: 27 y/o F who presented to ED with complaint of hematemesis for weeks found to be 14 weeks , with leukocytosis and mild hypokalemia Nausea Could be related to , but pt denies as she has not had similar symptoms in past, 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 bili in AM Vomiting No sulaiman hematemesis noted, h&H stable Not actively retching but concerns that she may have in the past Remaining hypokalemic despite repletion Low PO intake PO zofran Cont IVf if not tolerating PO transition to ranitidine 150mg bid Sucralfate 1g PO qid Vit B6 50mg tid Pending records from other 2 ERs patient visited Cyesis 14 weeks per TVUS in ED- Pt is G5 para 4 Denies previous hyperemesis gravidarum Ob on board- per OB-patient was advised to have NT sono, sequential one genetic screen with MFM Dr Leo, patient taken to her office , declined to move from [facility] and declined exam, understand importance of first trimester screening . Epigastric pain ECHO - Mild TR and MR EKG- within normal Received ativan last night- could be related to anxiety May benefit from Psych consult Electrolyte abnormalities Improving with correction PO Kcl 40meq Monitor and replete as needed FEN Encourage PO Intake Monitor and replete lytes as needed Soft diet PPx SCDs Dispo Observe for adequate PO intake and electrolyte correction for dispo planning Visit type - Emergency Visit Emergency Visit: Yes ED Registration Date: 02/25/18 Care time: The patient presented to the Emergency Department on the above date and was hospitalized for further evaluation of their emergent condition. - New Patient This patient is new to me today: No - Critical Care Critical Care patient: No - Discharge Referral Referred to [facility] Med P.C.: No
[2018-02-26 17:35] LABS: COCAINE, UR NEGATIVE ng/ml (CUTOFF=300); OPIATES, URI NEGATIVE ng/ml (CUTOFF=300); URINE AMPHETAMINES NEGATIVE ng/ml (CUTOFF=500); URINE BARBITURATES NEGATIVE ng/ml (CUTOFF=200); URINE BENZODIAZEPINES NEGATIVE ng/ml (CUTOFF=200)
[2018-02-26 17:36] LABS: METHADONE, UR NEGATIVE ng/ml (CUTOFF=300); PHENCYCLIDINE,URINE NEGATIVE ng/ml (CUTOFF=25)
[2018-02-27] MEDS: ONDANSETRON 4 MG/2 ML VIAL IVPUSH PRN ×3 (04:02→18:56)
[2018-02-27] MEDS: PYRIDOXINE HCL (B-6) 50 MG TABLET (FP) PO SCH ×3 (06:35→23:23)
[2018-02-27 07:28] LABS: BASO % 0.2 % (0-2.0); EOS % 0.8 % (0-4.5); HEMATOCRIT 35.5 % (32.4-45.2); HEMOGLOBIN 12.3 GM/dL (10.7-15.3); LYMPH % 23.6 % (8-40); MCH 30.7 pg (25.7-33.7); MCHC 34.6 g/dl (32.0-36.0); MEAN CELL VOLUME 88.8 fl (80-96); MEAN PLT VOLUME 8.6 fl (7.5-11.1); MONO % 6.6 % (3.8-10.2); NEUT % 68.8 % (42.8-82.8); PLATELET COUNT 225 K/MM3 (134-434); RDW 14.1 % (11.6-15.6); WHITE BLOOD COUNT 9.7 K/mm3 (4.0-10.0)
[2018-02-27 08:22] LABS: ALBUMIN 3.6 g/dl (3.4-5.0); BILIRUBIN,DIRECT 0.3 mg/dL (0.0-0.2); BILIRUBIN,TOTAL 0.6 mg/dL (0.2-1.0)
[2018-02-27 08:25] LABS: ANION GAP 11 (8-16); BLOOD UREA NITROGEN 2 mg/dL (7-18); CALCIUM 8.6 mg/dL (8.5-10.1); CHLORIDE 100 mmol/L (98-107); CO2 24 mmol/L (21-32); GLUCOSE,RANDOM 74 mg/dL (74-106); MAGNESIUM 1.9 mg/dL (1.8-2.4); SODIUM 135 mmol/L (136-145)
[2018-02-27 08:26] LABS: CREATININE 0.5 mg/dL (0.55-1.02)
[2018-02-27] MEDS ORDERED: KCL 10 MEQ IVPB 10 MEQ/100 ML INFUS.BAG IVPB SCH (09:00)
[2018-02-27] MEDS ORDERED: POTASSIUM CHLORIDE 20 MEQ in SODIUM CHLORIDE 250 ML IVPB ONE (09:30)
[2018-02-27] MEDS: SUCRALFATE 1 GM/10 ML UNIT DOSE CUPS PO SCH ×4 (09:37→23:19)
[2018-02-27] MEDS: RANITIDINE HCL 150 MG/10 ML UNIT-DOSE PO SCH ×2 (09:37→23:20)
[2018-02-27] MEDS: MAG HYDROX/AL HYDROX/SIMETH 30 ML UNIT-DOSE CUP PO PRN (09:49)
[2018-02-27] MEDS: POLYETHYLENE GLYCOL 3350 119 GM BTL PO SCH ×2 (09:54→23:19)
[2018-02-27] MEDS ORDERED: POTASSIUM CHLORIDE 10 MEQ in SODIUM CHLORIDE 100 ML IVPB ONE (11:30)
[2018-02-27 16:25] LABS: URINE APPEARANCE CLEAR; URINE BILIRUBIN NEGATIVE (<2.0 mg/dL); URINE COLOR STRAW; URINE GLUCOSE (UA) NEGATIVE (NEGATIVE); URINE KETONE 2+ (NEGATIVE); URINE NITRITE NEGATIVE (NEGATIVE); URINE PROTEIN NEGATIVE (NEGATIVE); URINE UROBILINOGEN NEGATIVE mg/dL (0.2-1.0)
--- NOTE | 2018-02-27 16:39 | PN ---
Progress Note (short form) - Note Progress Note: Clinically better. Tolerating full liquids. Advance diet to soft. OK to d/c if tolerating soft diet. Discussed with the patient. Problem List - Problems (1) Jimmy lesion, acute Code(s): K25.3 - ACUTE GASTRIC ULCER WITHOUT HEMORRHAGE OR PERFORATION
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
[2018-02-27 16:54] LABS: URINE LEUK ESTERASE 2+ (NEGATIVE)
[2018-02-27 16:57] LABS: EPI CELLS RARE /HPF (FEW); URINE BACTERIA RARE /hpf (NONE SEEN); URINE MUCUS RARE
[2018-02-28] MEDS: ONDANSETRON 4 MG/2 ML VIAL IVPUSH PRN (01:19)
[2018-02-28] MEDS ORDERED: ONDANSETRON 4 MG TABLET PO ONE (04:51)
[2018-02-28] MEDS ORDERED: ONDANSETRON 4 MG TABLET PO PRN (05:19)
[2018-02-28] MEDS: PYRIDOXINE HCL (B-6) 50 MG TABLET (FP) PO SCH ×2 (06:45→15:10)
[2018-02-28 07:30] LABS: BASO % 0.2 % (0-2.0); EOS % 0.8 % (0-4.5); HEMATOCRIT 34.3 % (32.4-45.2); HEMOGLOBIN 11.7 GM/dL (10.7-15.3); LYMPH % 25.3 % (8-40); MCH 30.8 pg (25.7-33.7); MCHC 34.3 g/dl (32.0-36.0); MEAN PLT VOLUME 8.6 fl (7.5-11.1); MONO % 6.8 % (3.8-10.2); NEUT % 66.9 % (42.8-82.8); PLATELET COUNT 215 K/MM3 (134-434); RBC 3.81 M/mm3 (3.60-5.2); RDW 13.8 % (11.6-15.6); WHITE BLOOD COUNT 9.5 K/mm3 (4.0-10.0)
[2018-02-28 07:55] LABS: ANION GAP 9 (8-16); BLOOD UREA NITROGEN 4 mg/dL (7-18); CALCIUM 8.8 mg/dL (8.5-10.1); CHLORIDE 102 mmol/L (98-107); CO2 26 mmol/L (21-32); CREATININE 0.5 mg/dL (0.55-1.02); GLUCOSE,RANDOM 89 mg/dL (74-106); PHOSPHOROUS 2.6 mg/dL (2.5-4.9); POTASSIUM 3.2 mmol/L (3.5-5.1); SODIUM 137 mmol/L (136-145)
[2018-02-28] MEDS ORDERED: POTASSIUM CHLORIDE 10 MEQ in SODIUM CHLORIDE 100 ML IVPB SCH (09:30)
[2018-02-28] MEDS ORDERED: POTASSIUM CHLORIDE TABS 20 MEQ TABLET.ER (FP) PO ONE (10:07)
[2018-02-28] MEDS: SUCRALFATE 1 GM/10 ML UNIT DOSE CUPS PO SCH ×2 (10:58→15:10)
[2018-02-28] MEDS: RANITIDINE HCL 150 MG/10 ML UNIT-DOSE PO SCH (10:58)
[2018-02-28] MEDS ORDERED: POTASSIUM CHLORIDE TABS 20 MEQ TABLET.ER (FP) PO SCH (11:00)
[2018-02-28] MEDS: POLYETHYLENE GLYCOL 3350 119 GM BTL PO SCH (11:00)
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
[2018-02-28] MEDS ORDERED: PT OWN MED DRAWER 7, Y5N ONE (14:57)
[2018-02-28 18:22] VITALS: BP 119/65; PULSE 84; TEMP 97.7
== END 2018-02-28 17:30 | disposition home or self-care (01) ==
LOC: JER 17:56 → JERBED 02-25 00:49 → UNDOADMOB 02-25 00:52 → JERBED 02-25 00:52 → J7W 02-25 03:29
PROVIDERS: ADMIT Internal Medicine; ATTEND Hospitalist
PROC: 3E03329 Introduction of Other Anti-infective into Peripheral Vein, Percutaneous Approach (ICD-10-PCS; principal; 2018-02-25)
PROC: 3E033GC Introduction of Other Therapeutic Substance into Peripheral Vein, Percutaneous Approach (ICD-10-PCS; 2018-02-25)
PROC: 3E0337Z Introduction of Electrolytic and Water Balance Substance into Peripheral Vein, Percutaneous Approach (ICD-10-PCS; 2018-02-25)
PROC: 3E023GC Introduction of Other Therapeutic Substance into Muscle, Percutaneous Approach (ICD-10-PCS; 2018-02-25)
DX: O21.0 Mild hyperemesis gravidarum (principal); K92.0 Hematemesis; R10.13 Epigastric pain; R07.89 Other chest pain; E87.6 Hypokalemia; R19.7 Diarrhea, unspecified; Z3A.14 14 weeks gestation of pregnancy; E83.51 Hypocalcemia; E83.42 Hypomagnesemia; E83.39 Other disorders of phosphorus metabolism; K25.3 Acute gastric ulcer without hemorrhage or perforation; R25.8 Other abnormal involuntary movements
CPT/HCPCS: 36415; 36600; 76705-TC; 76801-TC; 80048; 80053; 80076; 80307; 81003; 81015; 82248; 82550; 82803; 82962; 83605; 83690; 83735; 84100; 84484; 84702; 84703; 85025; 86850; 86900; 86901; 87086; 93005; 93010; 93306-TC; 96361; 96365; 96367; 96372; 96375; 96376; 99285-25; G0378; J7030